=== PATIENT | male | born 1955 | race American Indian/Alaskan Native ===

== ENCOUNTER 2017-02-19 09:00 | Day surgery (SDC) | payer MEDICARE ==
[~2017-02-19 09:00] MED LIST: ANCEF/STERILE WATER 2 GM/20 ML IV NR
== END 2017-02-19 09:01 | disposition home or self-care (01) ==
LOC: OR 09:00
PROVIDERS: ATTEND Urology
DX: N20.0 Calculus of kidney (principal); Z53.8 Procedure and treatment not carried out for other reasons